=== PATIENT | male | born 1995 | race Hispanic/Latino ===

== ENCOUNTER → 2023-05-01 | Outpatient (CLI) | payer BC | END | disposition home or self-care (01) | LOC: RAH 14:49 | PROVIDERS: ATTEND Physical Medicine & Rehabilitation | DX: Q76.42 Congenital lordosis (principal) | CPT/HCPCS: 72131 ==

== ENCOUNTER → 2024-01-05 | Outpatient (CLI) | payer BC | END | disposition home or self-care (01) | LOC: RAH 11:00 | PROVIDERS: ATTEND Physical Medicine & Rehabilitation | DX: M54.16 Radiculopathy, lumbar region (principal) | CPT/HCPCS: 72148 ==

== ENCOUNTER → 2024-02-01 | Outpatient (CLI) | payer BC | LOC: RAH 13:42 | PROVIDERS: ATTEND Physical Medicine & Rehabilitation | DX: M25.561 Pain in right knee (principal) | CPT/HCPCS: 73721 ==